=== PATIENT | female | born 1950 ===

== ENCOUNTER 2020-05-24 06:00 | Day surgery (SDC) | payer OTHER ==
[~2020-05-24 06:00] MED LIST: CYMBALTA60 MG PO; DIOVAN160 M1 PO; VALSARTAN PO
[2020-05-24] MEDS ORDERED: MACROBID 100 M100 MG PO (10:12)
[2020-05-24] MEDS ORDERED: ULTRACET PO (10:13)
== END 2020-05-24 12:25 | disposition home or self-care (01) ==
LOC: CIR.AMB 06:00 → ADM 10:45 → CIR.AMB 10:45
PROVIDERS: ATTEND Obstetrics & Gynecology Gynecology
DX: N81.6 Rectocele (principal); N81.5 Vaginal enterocele

== ENCOUNTER 2024-03-10 07:49 | Day surgery (SDC) | payer OTHER ==
[2024-03-03 15:30] LABS: PARTIAL THROMBOPLASTIN TIME 30.5 SECONDS (22.0-34.0); PROTHROMBIN TIME 10.5 SECONDS (9.0-11.5)
[~2024-03-10 07:49] MED LIST changes: +MACROBID 100 M100 MG PO; +ULTRACET PO
[2024-03-10] MEDS ORDERED: CEFAZOLIN SODIUM 1,000 MG VIAL ONE (08:32)
[2024-03-10] MEDS ORDERED: CHLORHEXIDINE GLUCONATE 120 ML BOTTLE TOP ONE ×2 (08:45→09:45)
[2024-03-10] MEDS ORDERED: GENTAMICIN SULFATE 40 MG/ML VIAL ONE ×2 (08:45→08:50)
[2024-03-10] MEDS ORDERED: LIDOCAINE HCL 1%/Epi 20ML VIAL IJ ONE (08:45)
[2024-03-10] MEDS ORDERED: CEFAZOLIN SODIUM 1,000 MG VIAL IV ONE (09:45)
[2024-03-10] MEDS ORDERED: GENTAMICIN SULFATE 40 MG/ML VIAL IR ONE (10:00)
[2024-03-10] MEDS ORDERED: LIDOCAINE HCL/EPINEPHRINE 1% 50ML VIAL IJ ONE (10:00)
[2024-03-10] MEDS ORDERED: MACROBID 100 M100 MG PO (10:26)
[2024-03-10] MEDS ORDERED: TRAM1TAB98 PO (10:27)
== END 2024-03-10 14:25 | disposition home or self-care (01) ==
LOC: CIR.AMB 07:49
PROVIDERS: ATTEND Obstetrics & Gynecology Gynecology
DX: N81.11 Cystocele, midline (principal); I10 Essential (primary) hypertension